=== PATIENT | female | born 1975 | race Caucasian/White ===

== ENCOUNTER → 2024-08-14 10:41 | Outpatient (REF) | payer OTHER, SELFPAY | LOC: HWRAD 10:41 | PROVIDERS: ATTENDING PHYSICIAN Surgery; FAMILY PHYSICIAN Family Medicine | DX: N20.0 Calculus of kidney (principal) | CPT/HCPCS: 76775 ==

== ENCOUNTER → 2024-08-30 08:00 | Outpatient (REF) | payer OTHER, SELFPAY | LOC: HWRAD 08:00 | PROVIDERS: ATTENDING PHYSICIAN Internal Medicine Hematology & Oncology; FAMILY PHYSICIAN Family Medicine | DX: M81.0 Age-related osteoporosis without current pathological fracture (principal) | CPT/HCPCS: 77080 ==

== ENCOUNTER 2024-10-07 01:24 | Emergency (ER) | payer OTHER, SELFPAY ==
[2024-10-07 01:48] VITALS: BP 111/88
[2024-10-07 02:19] LABS: Urine Albumin Negative (Neg - Trace); Urine Bilirubin Negative (Negative); Urine Character Clear (Clear); Urine Color Yellow; Urine Glucose Negative (Negative); Urine Ketone Negative (Negative); Urine Leukocyte 1+ (Negative); Urine Nitrite Negative (Negative); Urine Occult Blood Negative (Negative); Urine Urobilinogen Negative (Neg - 1+)
[2024-10-07 02:22] LABS: ALT (SGPT) 31 U/L (0-35); AST (SGOT) 27 U/L (14-36); Albumin 4.4 g/dl (3.5-5.0); Alkaline Phosphatase 78 U/L (38-126); Blood Urea Nitrogen 21 mg/dl (7-17); Calcium 9.2 mg/dl (8.4-10.2); Carbon Dioxide 26 mmol/L (22-30); Chloride 101 mmol/L (98-107); Glucose 129 mg/dl (70-99); Potassium 4.3 mmol/L (3.5-5.1); Sodium 135 mmol/L (135-145); Total Bilirubin 0.6 mg/dl (0.2-1.3); Total Protein 7.1 g/dl (6.3-8.2); eGFR > 60.00
[2024-10-07 02:24] LABS: % Basophils 0.1 % (0-2); % Eosinophils 0.9 % (0-6); % Immature Granulocytes 0.3 % (0-0.5); % Lymphocytes 7.1 % (20.5-51.1); % Monocytes 3.6 % (1.7-9.3); Absolute Eosinophils 0.1 10^3/uL (0-0.7); Absolute Lymphocytes 0.5 10^3/uL (1.2-3.4); Absolute Monocytes 0.3 10^3/uL (0.1-0.6); Absolute Neutrophils 6.6 10^3/uL (1.4-6.5); Hematocrit 40.6 % (37.0-47.0); Hemoglobin 14.1 g/dL (12.0-16.0); Lactic Acid 0.9 mmol/L (0.7-2.0); Mean Corp Hgb Conc. 34.7 g/dL (33.0-37.0); Mean Corpuscular Hgb 29.1 pg (27.0-31.0); Mean Corpuscular Volume 83.9 fL (81.0-99.0); Mean Platelet Volume 10.8 fL (7.4-10.4); Nucleated Red Blood Cells % 0 %; Platelet Count 141 10^3/uL (130-400); Red Blood Cell Count 4.84 10^6/uL (4.20-5.40); Red Cell Dist. Width 12.1 % (11.5-14.5); White Blood Cell Count 7.5 10^3/uL (4.8-10.8)
[2024-10-07 02:29] LABS: Urine Bacteria Moderate (Negative); Urine Squamous Cell >30 /LPF (Few); Urine White Cell >100 /HPF (0-5)
[2024-10-07 02:30] LABS: Urine Mucus Few
[2024-10-07 02:33] LABS: COVID-19 Antigen Negative (Negative)
[2024-10-07 02:55] VITALS: BP 105/74
[2024-10-07 03:02] VITALS: BP 98/78
--- NOTE | 2024-10-07 04:42 | ED.GENMED ---
History of Present Illness
General
Chief Complaint: Fever
Time Seen by Provider: 10/07/24 02:55
History of Present Illness
History of Present Illness:
49-year-old female with no significant past medical history presenting to the emergency department for concern of urinary tract infection. She reports 5 days ago she started to have some lower abdominal discomfort, lower back pain, which felt
similarly to when she had a urinary tract infection in July. Reports that she was treated with Bactrim, had interval improvement, however symptoms again developed 5 days ago. She called her urologist, had an outpatient urine test completed and
was prescribed Bactrim. She got the results today which appeared consistent with a urinary tract infection so she took 1 dose of the Bactrim. She notes she has been having subjective fevers, headache, low back pain, which prompted her to come to
the hospital. Denies any present abdominal pain. Notes some slight discomfort with urination. Denies any blood in her urine. Denies chest pain, difficulty breathing, cough or additional acute medical complaint
Past History
Past History
ED Past Surgical History: Gynecological (oopherectomy)
Phy Exam
Physical Exam
Physical Exam:
General: Well-appearing, no clinical signs of dehydration, nontoxic and in no acute distress
HEENT: protecting airway
Neck: appears supple
CV: Normal heart rate, regular rhythm
Resp: No accessory muscle use, no increased work of breathing, lungs clear to auscultation bilaterally
Abd: Soft and non-distended, no tenderness to palpation
Extremities: No deformities, no swelling
Neuro: alert, no focal neurologic deficit
: deferred
Rectal: deferred
Psych: Normal affect
Skin: Intact
Sepsis
Sepsis Screening
Sepsis Assessment: Sepsis Ruled Out
Sepsis Screen
Sepsis Screen: Sepsis Ruled Out
Date: 10/07/24
Time: 07:42
Course
Orders/Labs/Results
Orders:
Orders
10/07/24 01:59
COVID-19 Antigen Urgent
Source: Nasal Swab
Complete Blood Count/With Diff Urgent
Comprehensive Metabolic Panel Urgent
Lactic Acid Q4H
Comment: ON ICE, CANCEL 2ND ORDER IF FIRST LACTIC ACID LEVEL <2
Influenza A+B Rapid Molecular Urgent
ZACK Source: Nasal Swab
Specimen Description:
Date Specimen was Collected: 10/07/24
Time Specimen was Collected: 01:51
10/07/24 02:04
Urinalysis Reflex To Culture Urgent
Date Specimen was Collected: 10/07/24
Time Specimen was Collected: 01:51
Urine Microscopic Reflex Cult Urgent
Urine Culture Urgent
ZACK Source: U
Specimen Description:
Date Specimen was Collected: 10/07/24
Time Specimen was Collected: 01:51
10/07/24 04:41
Cephalexin Monohydrate [Keflex] 500 mg PO NOW STA
10/07/24 05:00
Acetaminophen [Tylenol] 1,000 mg .ROUTE .STK-MED ONE
10/07/24 05:02
Acetaminophen [Tylenol] 1,000 mg PO NOW STA
Abnormal Lab Results
10/07/24 10/07/24
01:59 02:04
MPV 10.8 H fL
(7.4-10.4)
Absolute Neuts (auto) 6.6 H 10^3/uL
(1.4-6.5)
Absolute Lymphs (auto) 0.5 L 10^3/uL
(1.2-3.4)
Neutrophils % 88.0 H %
(42.2-75.2)
Lymphocytes % 7.1 L %
(20.5-51.1)
BUN 21 H mg/dl
(7-17)
Glucose 129 H mg/dl
(70-99)
Leukocyte Esterase Rfl 1+ A
(Negative)
Urine RBC 3-6 A /HPF
(0-2)
Urine WBC (Reflex) >100 A /HPF
(0-5)
Urine Bacteria (Reflex) Moderate A
(Negative)
10/07/24 01:59
10/07/24 01:59
Vital Signs
Initial and Last Documented VS:
Initial Vital Signs
Temp Pulse Resp BP Pulse Ox
99.6 F 132 24 111/88 97
10/07/24 01:48 10/07/24 01:48 10/07/24 01:48 10/07/24 01:48 10/07/24 01:48
Last Documented Vital Signs
Temp Pulse Resp BP Pulse Ox
99.8 F 107 18 98/78 99
10/07/24 05:04 10/07/24 03:02 10/07/24 02:55 10/07/24 03:02 10/07/24 02:55
MDM/Problems Addressed
MDM/Problems Addressed:
49-year-old female presenting to the emergency department for concern of urinary tract infection. Vital signs on arrival are significant for tachycardia which resolved without intervention.
On exam patient is resting comfortably, no acute distress or discomfort. Send presentations appear consistent with cystitis versus ascending urinary tract infection. She is currently afebrile, nontoxic. No CVA tenderness or palpable tenderness to
the abdomen. Without present concern for serious intra-abdominal process or infection such as pyelonephritis. Do not feel patient requires advanced imaging at this time. Laboratory analysis obtained, no leukocytosis, normal renal function. Urine
does show leukocytes with WBCs and bacteria, consistent with urinary tract infection. Will send urine culture and start patient on cephalexin. Otherwise at this time feel patient is stable for discharge, improved vital signs, re-temp with no
fever. Return precautions discussed and patient verbalized understanding
*Critical Care Note
Total Time (30-74mins, 75-104mins- exclusive of procedures): Not Applicable
ED Attending Note
-
Portions of this chart may have been created with voice recognition software.� Occasional wrong word or��sound alike� substitutions may have occurred due to the inherent limitations of voice recognition software.
Discharge Plan
Departure
Patient Disposition: Home (Routine Discharge)
Date of Disposition: 10/07/24
Time of Disposition: 04:46
Patient with high blood pressure during this ER visit?: No
Condition: Good
Discharge Problem:
Urinary tract infection
Instructions: Urinary tract infection in adults - ED discharge instructions
Prescriptions:
New
cephalexin 500 mg capsule
500 mg PO BID 7 Days Qty: 14 0RF
No Action
anastrozole [Arimidex] 1 mg Tablet
1 mg PO DAILY
rosuvastatin 20 mg Tablet
20 mg PO DAILY
Mounjaro 10 mg/0.5 mL Pen Injector
10 mg SC QWEEK
Activity Restrictions/Additional Instructions:
You were seen in the emergency department for concern of urinary tract infection
You were found to have a urine infection, however your remainder of laboratory analysis was unremarkable.
Please follow-up closely with your primary care physician and take your antibiotics as prescribed
Return to the emergency department for any worsening of your symptoms, or any development of chest pain, difficulty breathing, abdominal pain with persistent vomiting and inability to tolerate food or liquid by mouth (concern for dehydration),
weakness, headache or confusion, fever greater than 100.4, or any additional symptoms that are concerning to you.
Thank you for choosing [facility].
Interventions
Interventions:
*Risk Screen - Suicide Last Done: 10/07/24 01:48
*General Assessment Last Done: 10/07/24 01:48
*Neglect/Abuse Screening Last Done: 10/07/24 01:48
ED- Fall Risk Assessment Last Done: 10/07/24 03:10
*ED COVID-19 Vaccine History Last Done: 10/07/24 02:59
*Nursing Disposition Last Done: 10/07/24 05:00
ED- Neurological Assessment Last Done: 10/07/24 03:10
ED-Skin Assessment Last Done: 10/07/24 03:10
Discharge Date and Time
Discharge Date/Time: 10/07/24 05:00
Print Language: BENGALI
[2024-10-07] MEDS: KEFLEX 500 MG PO (04:55)
[2024-10-07] MEDS: TYLENOL 1000 MG PO (05:02)
== END 2024-10-07 05:00 | disposition home or self-care (01) ==
LOC: EMR 01:24
PROVIDERS: EMERGENCY PHYSICIAN Student in an Organized Health Care Education/Training Program; FAMILY PHYSICIAN Family Medicine
DX: N39.0 Urinary tract infection, site not specified (principal); Z87.440 Personal history of urinary (tract) infections
CPT/HCPCS: 99283; 80053; 81003; 81015; 83605; 85025; 87086; 87502; 87811

== ENCOUNTER → 2025-09-12 09:04 | Outpatient (REF) | payer OTHER, SELFPAY | LOC: HWRAD 09:04 | PROVIDERS: ATTENDING PHYSICIAN Student in an Organized Health Care Education/Training Program; FAMILY PHYSICIAN Family Medicine | DX: J32.8 Other chronic sinusitis (principal) | CPT/HCPCS: 70486 ==

== ENCOUNTER → 2025-10-05 07:42 | Outpatient (REF) | payer OTHER, SELFPAY | LOC: MRI 3T 07:42 | PROVIDERS: ATTENDING PHYSICIAN Internal Medicine Hematology & Oncology; FAMILY PHYSICIAN Family Medicine | DX: C50.919 Malignant neoplasm of unspecified site of unspecified female breast (principal); Z17.0 Estrogen receptor positive status [ER+] | CPT/HCPCS: 77049; A9585 ==